=== PATIENT | female | born 1990 | race Caucasian/White ===

== ENCOUNTER 2017-05-19 17:50 | Emergency (ER) | payer SELFPAY ==
[~2017-05-19] VITALS: Ht 165.1 cm; Wt 90.7 kg
--- NOTE | 2017-05-19 17:59 | NUR ---
PT TO OVERFLOW. [facility] AT CHAIR SIDE.
--- NOTE | 2017-05-19 18:00 | NUR ---
PATIENT BIB [facility] FOR PRE-BOOK CLEARANCE . DENIES N/V/D; SKIN IS PINK/WARM/DRY; AAOX4 WITH EVEN AND STEADY GAIT; LUNGS CLEAR BL; HR EVEN AND REGULAR; PT DENIES ANY FEVER, CP, SOB, OR COUGH AT THIS TIME; PATIENT STATES PAIN OF 0/10 AT THIS TIME; VSS; PATIENT POSITIONED IN CHAIR, [facility] AT CHAIR SIDE. ER MD MADE AWARE OF PT STATUS.
[2017-05-19 18:08] VITALS: BP 129/81
[2017-05-19 18:38] VITALS: BP 129/81
--- NOTE | 2017-05-19 18:39 | NUR ---
Patient discharged with v/s stable. Written and verbal after care instructions given and explained. Patient verbalized understanding. Police with in custody. All questions addressed prior to discharge. Advised to follow up with PMD.
== END 2017-05-19 18:39 ==
LOC: MED 17:50
DX: Z02.89 Encounter for other administrative examinations (principal)
CPT/HCPCS: 99283